=== PATIENT | male | born 1980 | race Caucasian/White ===

== ENCOUNTER 2016-04-29 17:19 | Emergency (ER) | payer SELFPAY ==
[2016-04-29] MEDS ORDERED: NS 0.9% 1000 ML* 1,000 ML IV ONE (18:05)
[2016-04-29] MEDS ORDERED: Ondansetron INJ* 2 MG/ML VIAL IV ONE (18:05)
[2016-04-29] MEDS ORDERED: Morphine INJ* 4 MG/ML 1 ML SYRINGE IV ONE ×2 (18:05→18:49)
--- NOTE | 2016-04-29 21:03 | RAD ---
Indication: Fall, foot injury. 3 views of the right foot demonstrates fracture of the medial malleolus with lateral subluxation of the talus. The foot is otherwise unremarkable. IMPRESSION: Lateral subluxation of the talus. The remainder of the foot is unremarkable. Fracture of the medial malleolus.
--- NOTE | 2016-04-29 21:04 | RAD ---
Indication: Fall, right ankle and leg injury. 4 views of the right ankle demonstrates fracture of the distal diaphysis of the fibula, fracture of the medial malleolus as well as lateral subluxation of the talus relative to the tibia. IMPRESSION: Fracture of the fibula, medial malleolus with lateral subluxation of the talus.
--- NOTE | 2016-04-29 21:05 | RAD ---
Indication: Right leg injury after fall 2 views of the right lower leg demonstrates fracture of the distal fibula. IMPRESSION: Fracture distal diaphysis of the fibula.
--- NOTE | 2016-04-29 21:07 | RAD ---
Indication: Indication: Back pain. 2 views of the lumbar spine demonstrates mild compression of the T12 vertebra. This is incompletely imaged and age of which is undetermined. IMPRESSION: Mild compression of the T12 vertebra.
[2016-04-29] MEDS ORDERED: oxyCODONE/Acetamin 5/325 MG* TAB PO ONE ×2 (21:51)
[2016-04-29] MEDS ORDERED: Ibuprofen TAB* 800 MG PO ONE (21:51)
[2016-04-29 23:05] VITALS: BP 142/79
--- NOTE | 2016-06-17 14:26 | ED ---
Lower Extremity - HPI Summary HPI Summary: Pt here w/ fall from 6' height prior to arriving. 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 Landed on his feet but reports d/t the footwear he had on today, he could not control his ankle from rolling on him. He went to the ground and was eventauly assisted here. Feels like he broke his ankle. Denies numbness, tingling - cannot state is he has weakness as foot and ankle are still in calf high boot. Denies any other areas of pain or injury, including back however ankle pain is quite significant and could be a distracting injury. - History of Current Complaint Chief Complaint: EDExtremityLower Stated Complaint: RT ANKLE INJURY Time Seen by Provider: 04/29/16 18:05 Hx Obtained From: Patient Pain Intensity: 8 Pain Scale Used: 0-10 Numeric - Allergies/Home Medications Allergies/Adverse Reactions: Allergies Allergy/AdvReac Type Severity Reaction Status Date / Time No Known Allergies Allergy Verified 05/04/16 14:12 PMH/Surg Hx/FS Hx/Imm Hx Previously Healthy: Yes Endocrine/Hematology History: Denies: Hx Anticoagulant Therapy, Hx Blood Disorders - Surgical History Surgery Procedure, Year, and Place: right thumb tip amputated. - Immunization History Date of Tetanus Vaccine: March 2015 Infectious Disease History: No Infectious Disease History: Denies: Hx Clostridium Difficile, Hx Hepatitis, Hx Human Immunodeficiency Virus (HIV), Hx of Known/Suspected MRSA, Hx Shingles, Hx Tuberculosis, Hx Known/ Suspected VRE, Hx Known/Suspected VRSA, History Other Infectious Disease, Traveled Outside the [place] in Last 30 Days - Family History Known Family History: Positive: None - Social History Occupation: Employed Full-time - self-employed, contractor Alcohol Use: None Hx Substance Use: Yes Substance Use Type: Reports: Marijuana Hx Tobacco Use: Yes Smoking Status (MU): Current Every Day Smoker Amount Used/How Often: ~ 1 ppd Length of Time of Smoking/Using Tobacco: started ~ age 18 Have You Smoked in the Last Year: Yes Review of Systems Constitutional: Negative Eyes: Negative Negative: Chest Pain Negative: Shortness Of Breath Negative: Abdominal Pain, Vomiting, Nausea Positive: no symptoms reported. Negative: incontinence Musculoskeletal: Other - see HPI Skin: Other - unknown w/ boot in place Neurological: Other - see HPI Psychological: Normal - calm and cooperative but is in a great deal of pain All Other Systems Reviewed And Are Negative: Yes Physical Exam Triage Information Reviewed: Yes Vital Signs On Initial Exam: Initial Vitals Temp Pulse Resp BP Pulse Ox 98.6 F 76 20 107/65 100 04/29/16 17:21 04/29/16 17:21 04/29/16 17:21 04/29/16 17:21 04/29/16 17:21 Vital Signs Reviewed: Yes Appearance: Positive: Well-Appearing, Well-Nourished, Pain Distress Skin: Positive: Warm, Dry - once boot was removed (cut away from LE), no landy ecchymosis, erythema or opening in skin/bleeding Head/Face: Positive: Normal Head/Face Inspection Eyes: Positive: Normal, EOMI, NATALIE Dental: Negative: Dental Fracture @ Respiratory/Lung Sounds: Positive: Clear to Auscultation, Breath Sounds Present Cardiovascular: Positive: Normal, Pulses are Symmetrical in both Upper and Lower Extremities - DP's + 2, cap refill < 2 secs Abdomen Description: Positive: Nontender, Soft Bowel Sounds: Positive: Present Musculoskeletal: Positive: Limited @ - ankle grossly deformed and edematous - toes, MT and knee w/o pain and NTTP but limited ROM here as well d/t pain in ankle, Pain @ - Thoracolumar spine w/ mild TTP - no gross deformity Neurological: Positive: Normal, Sensory/Motor Intact, Alert, Oriented to Person Place, Time, CN Intact II-III Psychiatric: Positive: Normal Diagnostics - Vital Signs Vital Signs Temp Pulse Resp BP Pulse Ox 04/29/16 22:55 98.4 F 100 18 142/79 04/29/16 19:50 20 04/29/16 18:15 20 04/29/16 17:21 98.6 F 76 20 107/65 100 - Laboratory Lab Statement: Any lab studies that have been ordered have been reviewed, and results considered in the medical decision making process. Re-Evaluation - Re-Evaluation First Eval Change: Unchanged - minimal improvement of pain w/ 4mg morphine - will order more Second Eval Change: Improved Lower Extremity Course/Dx - Course Course Of Treatment: Pt w/ fall from 6' height - landed on feet w/ a rolling injury of Rt ankle and great pain resulting in fibular and tibial fx's as well as talar malalignment. Pt was also assesed for spinal fx given mechaism of injuyr and was found to have a t12 compression fx. Spoke w/ Dr. Buckner who advised CAM walking boot, pain control and f/u tomorrow in office. Education about spinal movements to reduce risk of pain. Pt's pain improved over course of stay w/ medications. Left w/ female friend who agreed to help take care of him. Pt voices understanding plan as well and plans to f/u w/ [facility] tomorrow. WIll return to ED if danger s/sx present. - Diagnoses Provider Diagnoses: Right fibular fracture, Fracture of medial malleolus, right, closed, Dislocation of right talus, T12 compression fracture Discharge - Discharge Plan Condition: Stable Disposition: HOME Prescriptions: Ibuprofen TAB* [Motrin TAB* 800 MG] 800 mg PO Q8HR PRN #20 tab PRN Reason: Pain oxyCODONE/Acetamin 5/325 MG* [Percocet 5/325 TAB*] 1 tab PO Q6H PRN #20 tab MDD 4 PRN Reason: Pain Patient Education Materials: Ankle Fracture (ED), Crutch Instructions (ED), Thoracolumbar Fracture (ED), Splint Care (ED) Referrals: Shahab Buckner MD [Medical Doctor] - Additional Instructions: You appear to have 2 fractures and a bone displacement in your Right ankle. This is being treated with stabilization tonight. Please keep splinting device in place until seen by Dr. Buckner tomorrow morning - he is in the office at 8: 30am. Contact information is included below. Use crutches to remain non-weight bearing. It is also advised that you rest, ice, and elevate your leg to reduce pain. You may take ibuprofen 800mg every 8 hours and percocet every 6 hours for pain. If you develop numbness, discoloration or weakness of your foot/toes prior to follow-up, first remove splint. If no change, return to ED. You also appear to have a compression fracture in your thoracic spine. This may be old or new. The treatment is ice and pain medications with limited movement of your spine. Follow-up with orthopedics. *If you develop weakness, numbness or difficulty breathing, return to ED
== END 2016-04-29 22:55 | disposition home or self-care (01) ==
LOC: ED 17:19
DX: S82.831A Other fracture of upper and lower end of right fibula, initial encounter for closed fracture (principal); M54.9 Dorsalgia, unspecified; W19.XXXA Unspecified fall, initial encounter; Y93.9 Activity, unspecified; Y92.9 Unspecified place or not applicable
CPT/HCPCS: 72100; 96374; 96375; 99284; A9270-GY; J2270; J2405

== ENCOUNTER → 2016-05-04 14:01 | Day surgery (SDC) | payer OTHER ==
--- NOTE | 2016-05-04 10:54 | HP ---
DATE OF ADMISSION: 05/04/16 - [facility] PROVIDER: Shahab Buckner MD CHIEF COMPLAINT: Right ankle injury. HISTORY OF PRESENT ILLNESS: Luis is a 35-year-old male who presented to the office with complaints of right ankle injury that he sustained on 04/29/16. He states that he just started a new job working, putting a new roof on a shed about 6 feet high. He slipped through the scaffolding and fell down to the ground. He landed on the right ankle and felt a crack and significant pain immediately. He was unable to bear weight. He was taken to [facility] where x-rays were obtained. He was placed in a short-leg splint and instructed to follow up with this office. He has been non-weight bearing since the time of the injury. He rates his pain as high as an 8/10. He has been taking Oxycodone as needed for pain. He denies a history of injury to the ankle previously. He denies paresthesias or numbness. PAST MEDICAL HISTORY: None. PAST SURGICAL HISTORY: None. CURRENT MEDICATIONS: Oxycodone 5 mg 1-2 tabs po q 4-6 hours prn pain. ALLERGIES: No known drug allergies. FAMILY HISTORY: Non-contributory. SOCIAL HISTORY: The patient lives with his girlfriend. He works as a orta. He smokes about a half a pack of cigarettes per day. He denies alcoholic beverage use. He exercises occasionally. REVIEW OF SYSTEMS: Constitutional - negative for recent hospitalizations, fevers, chills, night sweats, or weight loss. Head - negative for headaches, lightheadedness, or balance problems. Cardiovascular - negative for chest or arm pain with exertion, history of heart attack, heart murmur, heart palpitations, high blood pressure, embolism, or deep vein thrombosis. Respiratory - negative for chronic cough, shortness of breath with exertion, asthma or COPD. Gastrointestinal - negative for heartburn, nausea, vomiting, diarrhea, constipation, or GERD. Genitourinary - negative for night-time urination, frequency of urination, urinary tract infections, or kidney problems. Musculoskeletal - negative for chronic back pain, positive for ankle fracture. Skin - negative for rashes, lesions, lumps, or sores. Neurologic - negative for seizure, stroke, epilepsy, depression or anxiety endocrine - negative for diabetes or thyroid problems. Hematology - negative for easy bleeding, bruising, or anemia. PHYSICAL EXAMINATION GENERAL: He is a well-developed, well-nourished pleasant male in no acute distress at rest. He is alert and oriented x3 with appropriate mood and affect. VITAL SIGNS: The patient is 5 feet 10 inches, 170 pounds, blood pressure 120/80 , and pulse is 80, respirations 16. HEENT: Normocephalic, atraumatic. Hearing and vision are grossly intact. NECK: His trachea is midline. RESPIRATORY: Lungs clear to auscultation bilaterally. No wheezes, rales, or rhonchi. CARDIOVASCULAR: Regular rate and rhythm. No murmurs, rubs, or gallops. Normal S1, S2. ABDOMEN: Soft, nondistended, and nontender. Normal bowel sounds. EXTREMITIES: Exam of the right lower extremity - splint was taken down. Skin is intact without abrasions or open wounds. There is moderate edema throughout the ankle but no ecchymosis. There are no obvious deformities. He does have crepitus with movement of the ankle. He is able to flex and extend his MTP joints. His sensation to light touch is intact. He has a 2+ dorsalis pedis pulse. DIAGNOSTIC STUDIES/LAB DATA: Imaging: AP, lateral, and oblique views of the right ankle were reviewed from [facility] and show a bimalleolar fracture of the right ankle with displacement of the ankle mortis. A fibular fracture is a high Mena-C type fracture. IMPRESSION: Bimalleolar ankle fracture. PLAN: The patient is to undergo open reduction internal fixation of the right ankle by Dr. Buckner on 05/04/16. The risks, benefits, and postoperative course were discussed with the patient and his girlfriend at length, and they would like to proceed. He will continue non-weightbearing until surgery and for six weeks afterward. He will continue with the Oxycodone as needed for pain. We will follow up with the patient in the postoperative phase. AUGUSTINE HUERTA [id number]/[facility] #: [id number] [facility]OSPITALClarence
[~2016-05-04 14:01] MED LIST: Buffered Lidocaine 1% SYR 3ML* 3 ML/SYR SYRINGE INTRADERM ONE; Bupivacaine 0.5% SDV PF* 30 ML VIAL ONE; Dexamethasone IV* 4 MG/ML 1 ML (4 MG) IV SLOW PU ONE; Dexamethasone IV* 4 MG/ML 1 ML (4 MG) ONE; Famotidine IV* 10 MG/ML 2 ML (20 mg) IV ONE; Famotidine IV* 10 MG/ML 2 ML (20 mg) ONE; Ketorolac INJ* 30 MG/ML 1 ML VIAL ONE; Lidocaine 2% PF * 5 ML VIAL ONE; Ondansetron INJ* 2 MG/ML VIAL ONE; PROCHLORPERAZINE INJ 5 MG/ML 2 ML VIAL IV PRN; Propofol* 10 MG/ML 20 ML BTL IV PUSH ONE; ceFAZolin 2 GM PREMIX (*) 2 GM/50 ML BAG IVPB ONE; fentaNYL* 50 MCG/ML 2 ML VIAL (100 MCG VIAL) ONE; fentaNYL* 50 MCG/ML 5 ML VIAL (250 MCG VIAL) ONE; oxyCODONE/Acetamin 5/325 MG* TAB ONE; oxyCODONE/Acetamin 5/325 MG* TAB PO PRN
[2016-05-04] MEDS: fentaNYL* 50 MCG/ML 2 ML VIAL (100 MCG VIAL) IV PRN ×2 (16:00→16:07)
[2016-05-04 16:47] VITALS: BP 134/82
--- NOTE | 2016-05-04 19:12 | RAD ---
INDICATION: ORIF RIGHT lower leg and ankle. COMPARISON: April 29, 2016 TECHNIQUE: 5 seconds fluoroscopy. FINDINGS: Spot images document a cortical plate and multiple screws traversing the distal diaphyseal fracture of the fibula with anatomic alignment as well as transverse syndesmotic screws and cannulated medial malleolus screws. Alignment at the ankle mortise appears grossly anatomic. IMPRESSION: Procedural fluoroscopy. CPT II Codes: 6045F
--- NOTE | 2016-05-05 12:13 | OP ---
DATE OF OPERATION: 05/04/16 - [facility] DATE OF : 80 SURGEON: Shahab Buckner MD TRANSFORMER MOLDER: Glendy Reyes PA-C. ANESTHESIOLOGIST: Ciera Do MD ANESTHESIA: General PRE-OP DIAGNOSIS: Right PLR4 bimalleolar ankle fracture. POST-OP DIAGNOSIS: Right PLR4 bimalleolar ankle fracture. OPERATIVE PROCEDURE: Open reduction and internal fixation, right bimalleolar ankle fracture. DESCRIPTION OF PROCEDURE: The patient was taken to the operating room, where the thigh tourniquet was inflated. We made a 12 cm longitudinal incision along the distal and mid third of the right fibula. The transverse fracture was brought out to length and reduced anatomically. We then fashioned a 12-hole, 3.5 mm recon plate to fit the posterolateral aspect of the fibula. This was attached above and below the fracture with appropriate locking and nonlocking screws. Also, two distal syndesmotic screws were placed under direct vision and reduction of the syndesmosis itself. A medial longitudinal incision was made over the medial malleolus. We extended this along the anterior portion of the malleolus going through the capsule. We were able to anatomically reduce the medial malleolus, holding this temporarily with a 0.062 C-wire. We then fixed the medial malleolus with paired ____ through the cancellous screws over washers. Good fixation and alignment was obtained. We verified satisfactory position of the hardware, AP and lateral views of the C-arm, and closed with Vicryl subcutaneous and esequiel for the skin. A compression dressing and plaster splint applied. [id number]/[facility] #: [id number] [facility] CENTERClarence
== END | disposition home or self-care (01) ==
LOC: OR 14:01
PROVIDERS: ATTEND Orthopaedic Surgery
DX: S82.841A Displaced bimalleolar fracture of right lower leg, initial encounter for closed fracture (principal); F17.210 Nicotine dependence, cigarettes, uncomplicated; W12.XXXA Fall on and from scaffolding, initial encounter; Y93.89 Activity, other specified; Y99.0 Civilian activity done for income or pay
CPT/HCPCS: 76000; A9270-GY; C1713; C1776; J0690; J1100; J1885; J2405; J2704; J3010

== ENCOUNTER 2016-07-06 08:51 | Day surgery (SDC) | payer OTHER ==
[~2016-07-06 08:51] MED LIST changes: -Buffered Lidocaine 1% SYR 3ML* 3 ML/SYR SYRINGE INTRADERM ONE; +Buffered Lidocaine 1% SYRIN* 3 ML/SYR SYRINGE INTRADERM ONE; -Bupivacaine 0.5% SDV PF* 30 ML VIAL ONE; -Dexamethasone IV* 4 MG/ML 1 ML (4 MG) IV SLOW PU ONE; -Dexamethasone IV* 4 MG/ML 1 ML (4 MG) ONE; -Famotidine IV* 10 MG/ML 2 ML (20 mg) IV ONE; -Famotidine IV* 10 MG/ML 2 ML (20 mg) ONE; -Ketorolac INJ* 30 MG/ML 1 ML VIAL ONE; -Lidocaine 2% PF * 5 ML VIAL ONE; -Ondansetron INJ* 2 MG/ML VIAL ONE; -PROCHLORPERAZINE INJ 5 MG/ML 2 ML VIAL IV PRN; -Propofol* 10 MG/ML 20 ML BTL IV PUSH ONE; +Sodium Citrate/Citric Acid* 15 ML UDC PO ONE; -ceFAZolin 2 GM PREMIX (*) 2 GM/50 ML BAG IVPB ONE; -fentaNYL* 50 MCG/ML 2 ML VIAL (100 MCG VIAL) ONE; -fentaNYL* 50 MCG/ML 5 ML VIAL (250 MCG VIAL) ONE; -oxyCODONE/Acetamin 5/325 MG* TAB ONE; -oxyCODONE/Acetamin 5/325 MG* TAB PO PRN
[2016-07-06] MEDS ORDERED: ceFAZolin 2 GM PREMIX(*) 2 GM/50 ML BAG IVPB ONE (09:02)
[2016-07-06] MEDS ORDERED: Sodium Citrate/Citric Acid* 15 ML UDC ONE (09:02)
[2016-07-06] MEDS ORDERED: Lidocaine 2% PF* 10 ML AMP ONE (09:34)
[2016-07-06] MEDS ORDERED: fentaNYL* 50 MCG/ML 2 ML VIAL (100 MCG VIAL) ONE (10:49)
[2016-07-06] MEDS ORDERED: Midazolam* 1 MG/ML 5 ML VIAL (5 MG) ONE (10:49)
[2016-07-06] MEDS ORDERED: Bupivacaine 0.5% SDV PF* 30 ML VIAL ONE (11:08)
[2016-07-06 11:43] VITALS: BP 97/58
--- NOTE | 2016-07-07 02:24 | OP ---
DATE OF OPERATION: 07/06/16 - [facility] DATE OF : 80 SURGEON: Shahab Buckner MD ELEMENTARY READING TUTOR: Glendy Reyes PA-C ANESTHESIOLOGIST: Lucas Trivedi DO ANESTHESIA: MAC PRE-OP DIAGNOSIS: Loose backing out syndesmotic screws, right ankle. POST-OP DIAGNOSIS: Loose backing out syndesmotic screws, right ankle. OPERATIVE PROCEDURE: Removal of two syndesmotic screws, right ankle. DESCRIPTION OF PROCEDURE: The patient was taken to the operating room, where a 2 cm incision was made under local anesthesia. The head of the screw, which had backed out about a centimeter, was isolated and removed with a small fragment screw trash collector truck driver. Just proximal to this, we found the head of the other screw, which was removed in a similar fashion. We then irrigated thoroughly closing with interrupted nylon sutures and a compression dressing applied. [id number]/[facility] #: [id number] [facility]TD[facility]
== END 2016-07-06 11:48 | disposition home or self-care (01) ==
LOC: OR 08:51
PROVIDERS: ATTEND Orthopaedic Surgery
DX: T84.84XA Pain due to internal orthopedic prosthetic devices, implants and grafts, initial encounter (principal); Y83.1 Surgical operation with implant of artificial internal device as the cause of abnormal reaction of the patient, or of later complication, without mention of misadventure at the time of the procedure; F17.210 Nicotine dependence, cigarettes, uncomplicated
CPT/HCPCS: 87070; 87073; 87205; 88300; A9270-GY; J0690; J2001; J2250; J3010